=== PATIENT | male | born 1990 | race Caucasian/White ===

== ENCOUNTER → 2023-06-01 | Outpatient (CLI) | payer MEDICAID, SELFPAY ==
[2023-06-01 17:37] LABS: Absolute Lymphocyte Count 2.23 X10^3/uL (0.83-4.51); Absolute Neutrophil Count 4.8 X10^3/uL (2.0-7.7); Basophil# 0.06 X10^3/uL; Basophil% 0.8 % (0-1); Eosinophil# 0.07 X10^3/uL; Eosinophils% 0.9 % (0-5); Hematocrit 47.8 % (40-54); Hemoglobin 16.1 g/dL (13.0-16.5); Lymphocyte # 2.23 X10^3/ul (0.83-4.51); Lymphocyte % 29.1 % (19-41); Mean Corp Hgb Conc 33.7 g/dL (32-36); Mean Corpuscular Hgb 30.3 pg (27.0-32.0); Mean Corpuscular Volume 89.8 fL (80-94); Mean Platelet Vol. 9.4 fl (6.2-12.0); Monocyte# 0.48 X10^3/uL; Monocyte% 6.3 % (0-10); NRBC Flagged by Analyzer 0 % (0-5); Neutrophil # 4.81 X10^3/uL (2.7-7.7); Neutrophil % 62.6 % (47-70); Platelet Count 221 K/mm3 (150-450); RBC Distribution Width CV 12.4 % (11.6-14.6); RBC Distribution Width SD 40.4 fl (35.1-43.9); Red Blood Count 5.32 M/mm3 (4.6-6.2); White Blood Count 7.7 K/mm3 (4.4-11.0)
[2023-06-01 18:15] LABS: ALB/GLOB Ratio 0.9 RATIO (0.9-2.4); AST(SGOT) 22 U/L (15-37); Alanine Aminotransfer ALT/SGPT 68 U/L (16-61); Albumin, Serum 3.7 g/dL (3.2-5.0); Alkaline Phosphatase 92 U/L (45-117); Anion Gap 3 (5-15); BUN 15 mg/dL (7-18); BUN/Creat Ratio 14.3 RATIO (10-20); Chloride 103 mmol/L (98-107); Cholesterol 195 mg/dL (200); Creatinine, Serum 1.05 mg/dL (0.70-1.30); EST Glomerular Filtration Rate 87 mL/min (>60); Est Glom Filt Rate - Afr Amer 106 mL/min (>60); Globulin 4.2 g/dL (2.2-4.2); Glucose 83 mg/dL (74-106); High Density Lipoprotein 30 mg/dL; Potassium 4.2 mmol/L (3.5-5.1); Protein, Total 7.9 g/dL (6.4-8.2); Sodium Level 134 mmol/L (136-145); Triglycerides 397 mg/dL; Very Low Density Lipoprotein 79 mg/dL (5-40)
== END | disposition home or self-care (01) ==
LOC: MFPLAB 15:51
PROVIDERS: PCP Family Medicine; Visit Provider Family Medicine
DX: F41.1 Generalized anxiety disorder (principal)
CPT/HCPCS: 36415; 80053; 80061; 84443; 85025

== ENCOUNTER → 2023-09-27 | Outpatient (CLI) | payer MEDICAID, SELFPAY ==
[2023-09-27 18:39] LABS: Anion Gap 4 (5-15); BUN 18 mg/dL (7-18); Calcium,Total 9.5 mg/dL (8.5-10.1); Chloride 107 mmol/L (98-107); EST Glomerular Filtration Rate 92 mL/min (>60); Est Glom Filt Rate - Afr Amer 112 mL/min (>60); Glucose 95 mg/dL (74-106); Potassium 3.9 mmol/L (3.5-5.1); Sodium Level 137 mmol/L (136-145); Thyroid Stim Hormone (TSH) 0.94 uIU/mL (0.358-3.74)
== END | disposition home or self-care (01) ==
LOC: MFPLAB 16:57
PROVIDERS: PCP Family Medicine; Visit Provider Family Medicine
DX: F41.1 Generalized anxiety disorder (principal)
CPT/HCPCS: 36415; 80048; 84443

== ENCOUNTER → 2025-06-07 | Outpatient (CLI) | payer MEDICAID, SELFPAY ==
[2025-06-07 17:51] LABS: Hematocrit 46.2 % (40-54); Hemoglobin 16.2 g/dL (13.0-16.5); Mean Corp Hgb Conc 35.1 g/dL (32-36); Mean Corpuscular Volume 86.2 fL (80-94); Mean Platelet Vol. 9.5 fl (6.2-12.0); Platelet Count 194 K/mm3 (150-450); RBC Distribution Width CV 13.3 % (11.6-14.6); RBC Distribution Width SD 41.3 fl (35.1-43.9); Red Blood Count 5.36 M/mm3 (4.6-6.2); White Blood Count 6.9 K/mm3 (4.4-11.0)
[2025-06-07 18:11] LABS: AST(SGOT) 20 U/L (<=37); Alanine Aminotransfer ALT/SGPT 34 U/L (<=46); Albumin, Serum 4.6 g/dL (3.5-5.0); Alkaline Phosphatase 76 U/L (40-129); Anion Gap 13 (5-15); BUN 18 mg/dL (4-19); BUN/Creat Ratio 19.2 RATIO (10-20); Calcium,Total 9.7 mg/dL (7.6-11.0); Carbon Dioxide 22.9 mmol/L (21.0-32.0); Chloride 102 mmol/L (98-108); Cholesterol 220 mg/dL (<=200); Globulin 3.2 g/dL (2.2-4.2); Glucose 87 mg/dL (70-99); Low Density Lipoprotein Calc. 135 mg/dL; Potassium 3.8 mmol/L (3.3-5.1); Triglycerides 301 mg/dL; Very Low Density Lipoprotein 60 mg/dL (5-40); cholesterol:hdl ratio screen 7.24
[2025-06-13 09:08] LABS: Bluegrass, Kentucky 0.55 kU/L (Class I); Cat Hair/Dander, Standard <0.10 kU/L (Class 0); Cedar, Mountain 0.26 kU/L (Class 0/I); Cockroach, American <0.10 kU/L (Class 0); Dog Epithelia <0.10 kU/L (Class 0); Elm, American White 0.42 kU/L (Class I); Hazelnut Tree 0.10 kU/L (Class 0/I); Hickory, White 0.28 kU/L (Class 0/I); Mulberry, White 0.20 kU/L (Class 0/I); Oak, White 0.36 kU/L (Class I); Pigweed, Rough 0.20 kU/L (Class 0/I); Plantain, English 0.30 kU/L (Class 0/I); Ragweed, Short/Common 0.34 kU/L (Class I); Sheep Sorrel(Dock) 0.46 kU/L (Class I); Sycamore, American 0.42 kU/L (Class I)
== END | disposition home or self-care (01) ==
LOC: MFPLAB 14:51
PROVIDERS: PCP Family Medicine; Visit Provider Family Medicine
DX: Z13.1 Encounter for screening for diabetes mellitus (principal); F41.1 Generalized anxiety disorder; R53.83 Other fatigue; E78.5 Hyperlipidemia, unspecified; T78.40XA Allergy, unspecified, initial encounter
CPT/HCPCS: 36415; 80053; 80061; 83036; 84443; 85027; 86003